=== PATIENT | female | born 1975 | race Caucasian/White ===

== ENCOUNTER 2022-12-01 14:50 | Emergency (ER) | payer OTHER ==
[~2022-12-01] VITALS: Ht 157.5 cm; Wt 52.6 kg
[2022-12-01 16:34] VITALS: BP 110/70
== END 2022-12-01 16:35 | disposition home or self-care (01) ==
LOC: ER 14:50 → EDBD 14:50 → ER 16:35
DX: J02.9 Acute pharyngitis, unspecified (principal)
CPT/HCPCS: 86403; A4663